=== PATIENT | female | born 1950 | race Caucasian/White ===

== ENCOUNTER 2016-08-04 23:36 | Observation (INO) ==
--- NOTE | 2016-08-05 00:36 | Emergency Department Note ---
Uriah Pinto Brittany, am scribing for, and in the presence of, Nathaniel Alexander MD 00:25. Catherine Pinto Charles R, MD, personally performed the services described in this documentation, ascribed by Kathia Kruse in my presence, and it is both accurate and complete . Arrival - Arrival Chief Complaint: Extremity Problem Stated Complaint: right shoulder ED Nursing Triage Note: C/C right shoulder pain, swelling. Got injection on Friday by Dr Edwin Leigh. Hurts to move it. Mode of Arrival: Ambulatory Limitations: No Limitations Source: Patient, Family, RN Notes Reviewed Time Seen by Provider: 08/04/16 23:57 - History of Present Illness HPI Narrative: Patient is a 66 y/o white female presenting to the ED accompanied by her daughter with c/o right shoulder pain and swelling with an onset of yesterday morning. Patient was seen at [facility] and transferred here for further evaluation. Daughter reports that she received an injection to her right shoulder on Friday per Dr. Edwin Jr. Daughter states that patient was doing fine after the injection until yesterday, when pain onset. She notes that patient's pain is increased with movement. Daughter reports that due to extent of pain, patient at times will become anxious and begin to get short of breath. Patient states, "pain hasn't let up," but denies having any chest pain with this. Daughter notes that patient did have a fever at [facility]. No other complaint/pain in the ED at this time. Allergies/Adverse Reactions: Allergies Allergy/AdvReac Type Severity Reaction Status Date / Time ketorolac [From Toradol] Allergy Agitated Verified 08/04/16 23:48 Review of System - Review of System 12 point system: reviewed and no additional remarkable complaints except as stated - Review of System Constitutional: Present: fever Respiratory: Present: respiratory distress Cardiovascular: Absent: chest pain Musculoskeletal: Present: arm pain (right shoulder) Psychiatric: Present: anxiety Medical,Surgical,& Family Hx - Medical History Cardio: History of: Hypertension Psychological: History of: Depression Respiratory: History of: Asthma Musculoskeletal: History of: Back/Neck Problems, Musculoskeletal Problems ( bilat carpal tunnel) - Surgical History Abdominal Surgeries: Surgical HX of: Cholecystectomy - Social History Smoking Status: Never smoker Frequency of Alcohol Use: None Type of Drug Use: None Exam Vital Signs: Vital Signs Temperature 99.2 F 08/04/16 23:42 Pulse Rate 86 08/04/16 23:50 Respiratory Rate 20 08/04/16 23:50 Blood Pressure 125/91 08/04/16 23:50 O2 Sat by Pulse Oximetry 100 08/04/16 23:50 - General General appearance: alert, in distress (due to pain) - Head Head exam: Present: atraumatic, normocephalic - Eye Eye exam: Present: PERRL, EOMI - ENT ENT exam: Present: mucous membranes moist, TM's normal bilaterally - Neck Neck exam: Present: full ROM, trachea midline. Absent: tenderness - Chest Chest inspection: Present: symmetric chest wall rise. Absent: tenderness - Respiratory Respiratory exam: Present: normal lung sounds bilaterally. Absent: rales, rhonchi, wheezes - Cardiovascular Cardiovascular exam: Present: normal rhythm, tachycardia, normal heart sounds. Absent: regular rate - Abdominal Exam Abdominal exam: Present: soft, normal bowel sounds. Absent: distention, tenderness - Expanded Upper Right Upper Extremity Shoulder exam: Present: tenderness, swelling, other (warm to touch). Absent: full ROM (limited due to pain, patient would not let me move it) Vascular exam: Normal: radial pulse (intact) - Back Exam Back exam: Present: full ROM - Neurological Exam Neurological exam: Present: alert, oriented X3 - Psychiatric Psychiatric exam: Present: normal affect, normal mood - Skin Skin exam: Present: warm, dry, intact, normal color Course Course Narrative: Physical examination the right shoulder shows patient is able to have limited range of motion due to pain. There is crepitation and clicking on movement. No redness minimal swelling x-ray shows severe degenerative changes. Neurovascular intact patient is afebrile in our emergency room with a 99.2 temperature - Consultations Consultation #1: Spoke to Dr. Pineda about the case. To actively given observation admission or go home and he'll see her in the office. After speaking to the patient she states her pain is too bad for her to go home some (the hospital for observation no antibiotics will treat her pain and have him see her in the morning she'll be nothing by mouth Time: 00:36 Disposition Clinical Impression: Right shoulder pain, Right rotator cuff tendinitis Case discussed with: patient, patient's family Disposition: Still a Patient Condition: Stable Time of Disposition: 00:40
[2016-08-05] MEDS ORDERED: MAGNESIUM SULF RIDER 2 GM in PREMIX 1 EACH IV STA (00:40)
[2016-08-05] MEDS ORDERED: ONDANSETRON 4 MG/2 ML VIAL IV STA (00:40)
[2016-08-05] MEDS ORDERED: MEPERIDINE 25 MG/1 ML VIAL IV STA (00:40)
[2016-08-05] MEDS ORDERED: ONDANSETRON 4 MG/2 ML VIAL ONE (01:01)
[2016-08-05] MEDS ORDERED: MEPERIDINE 25 MG/1 ML VIAL ONE (01:01)
[2016-08-05] MEDS ORDERED: MAGNESIUM SULF RIDER 50 ML IV ONE (01:01)
[2016-08-05] MEDS ORDERED: HYDROmorphone 2 MG/1 ML VIAL IV PRN (01:47)
[2016-08-05] MEDS ORDERED: ZALEPLON 5 MG CAPSULE PO PRN (01:47)
[2016-08-05] MEDS ORDERED: MAGNESIUM HYDROXIDE SUSP 30 ML UDCUP PO PRN (01:47)
[2016-08-05 02:11] LABS: Basophils % 0.1 % (0.0-0.8); Eosinophils % 0.1 % (0.00-10.9); Hematocrit 35.3 VOL% (35.7-47.0); Hemoglobin 11.9 GM/DL (12.0-16.0); Immature Granulocytes % 0.4 %; Immature Granulocytes Absolute 0.07 #; Lymphocytes # 1.9 10*3/uL (1.4-4.0); Lymphocytes % 11.9 % (21.3-54.2); Mean Corpuscular HGB Conc 33.7 GM/DL (32-36); Mean Corpuscular Hemoglobin 30 PG (27-34); Mean Corpuscular Volume 88.3 FL (87-102); Mean Platelet Volume 9.2 FL (9.6-12.0); Monocytes # 1.6 10*3/uL (0.11-0.8); Monocytes % 9.9 % (1.7-12.7); Neutrophils # 12.4 10*3/uL (1.4-7.4); Neutrophils % 77.6 % (38.7-73.9); Platelet Count 307 10*3/uL (130-400); White Blood Count 15.9 10*3/uL (4.5-13.71)
[2016-08-05] MEDS: SODIUM CHLORIDE 0.9% 1,000 ML IV SCH ×2 (02:25→13:21)
[2016-08-05 02:44] LABS: Albumin 3.2 G/DL (3.4-5.0); Bilirubin,Total 1.3 MG/DL (0.2-1.0); Calcium 8.6 MG/DL (8.5-10.1); Osmolality,Calculated 276.7 MOS/KG (273-304); Potassium 3.6 MMOL/L (3.5-5.1); Total Protein 6.4 G/DL (6.4-8.3)
[2016-08-05] MEDS ORDERED: ONDANSETRON 4 MG/2 ML VIAL IV PRN (07:23)
--- NOTE | 2016-08-05 07:26 | Orthopedic History & Physical ---
History of Present Illness Chief complaint: rt shoulder pain History of present illness: Ms. Gallo is a 66 year old female see dictated reports Allergies Allergy/AdvReac Type Severity Reaction Status Date / Time ketorolac [From Toradol] Allergy Agitated Verified 08/04/16 23:48 Medical,Surgical,& Family Hx - Medical History Cardio: History of: Hypertension Psychological: History of: Depression HEENT: History of: Ear Problem (hard of hearing) Respiratory: History of: Asthma Musculoskeletal: History of: Back/Neck Problems, Musculoskeletal Problems ( bilat carpal tunnel, arthritis, right leg paralysis) - Surgical History Abdominal Surgeries: Surgical HX of: Abdominal Surgery (esophagus dilated 2015) , Cholecystectomy - Family History Family History: Reports;: Family Heart Disease (mother had heart catherization) , Family Hypertension (mother) - Social History Smoking Status: Never smoker Frequency of Alcohol Use: None Type of Drug Use: None Exam - Constitutional Vitals: Period Temp Pulse Resp BP Sys/Grijalva Pulse Ox Last 24 Hr 97.5 F-98.2 F 72-95 18-18 92-154/69-82 96-100 Results - Labs CBC & BMP: 08/05/16 02:03 08/05/16 02:03
--- NOTE | 2016-08-05 07:42 | EKG Report ---
Stationary ECG Study [facility] Test Date: 08/05/2016 7:26:08 AM Pat Name: MYRON PULIDO Department: Room: 322 Gender: F Ekg/Ecg Technician: EFREN : 1950 Requested by: Nathaniel Leon Order Number: [id number] Mellissa MD: NEDRA NASCIMENTO Intervals Dexter Rate: 61 P: 63 IN: 162 QRS: 27 QRSD: 104 T: 20 QT: 439 QTc: 441 Interpretive Statements SINUS RHYTHM Electronically Signed On 08-05-16 09:23:23 [employer]2B OUTSIDE SALES REPRESENTATIVE by NEDRA NASCIMENTO [email or web address]
--- NOTE | 2016-08-05 08:02 | XRay Report ---
Referring Physician: Nathaniel Alexander Exam: XR shoulder 2V RT Date: August 05, 2016 at 5:32 AM Reason: Right shoulder pain Comparison: Right shoulder x-rays August 04, 2016 Findings: There is moderate to severe degenerative change at the right acromioclavicular joint with marginal spurring. There is also marginal spurring at the right humeral head and mild marginal spurring at the lateral aspect of the acromium. No acute fracture, dislocation or osseous destructive process is identified. Impression: Degenerative change at the right shoulder as above. No acute osseous process is identified. PROCEDURE INTERPRETED AT [facility] DEPARTMENT OF RADIOLOGY Final Report Signed by: Dr. Jeannie Ballesteros
[2016-08-05 11:09] LABS: Apearance,Urine Slightly Hazy (Clear); Bacteria,Urine Occasional /HPF (Few); Bilirubin,Urine Negative (Negative); Blood, Urine Negative (Negative); Glucose,Urine (UA) Negative (Negative); Ketones,Urine 5 mg/dL (Negative); Mucus,Urine Occasional /LPF (Occasional); Nitrite,Urine Negative (Negative); Protein,Urine Negative; RBC,Urine 2 /HPF (0-4); Squamous Epithelial Cell,Urine Occasional /HPF (0-10); Urine Color Dark yellow (Yellow); Urine Specific Gravity 1.019 (1.001-1.035); WBC,Urine 16 /HPF (0-6)
--- NOTE | 2016-08-05 12:05 | History and Physical Report ---
DATE OF ADMISSION: 08/05/2016 A 66-year-old white female admitted for a recent onset of severe right shoulder pain. She has a his tory of rotator cuff arthropathy. She has been a patient of mine for the past couple of years. She is a nonoperative candidate due to multiple medical problems. She was injected approximately 5 day s ago in her right shoulder with the combination of Marcaine/Celestone and expectations were discuss ed. Her previous injection prior to that was about a year and a half ago. She had initial improvem ent with a recurrence of pain, which started Friday morning. She was evaluated at [facility] due to some laboratory values, elevated white count. She was told that her shoulder was infected and that she needed to follow up at [facility]. She had been evaluated by Dr. Alexander and is being a dmitted for evaluation. PAST MEDICAL: Pulmonary, hypertension, depression, asthma, carpal tunnel, back and neck problems. PAST SURGICAL: Cholecystectomy. MEDICINES: Toradol. PHYSICAL EXAMINATION A well-developed, nourished female. She is in mild discomfort about her right shoulder. This morni ng she had received some pain medication. She tolerates gentle passive range of motion including in ternal/external rotation and abduction to about 90 degrees without any severe discomfort. I can isidro reciate no erythema or warmth about the right shoulder. There is no pain or swelling distally about the arm. RADIOGRAPHS: Right shoulder confirmed the degenerative changes, which are chronic in appearance. T his includes an osteophyte off the humeral head as well as cuff arthropathy changes. IMPRESSION: 1. ROTATOR CUFF ARTHROPATHY, RIGHT SHOULDER. 2. PROBABLE URINARY TRACT INFECTION. PLAN: I have discussed with her my impression. This is not a septic shoulder. We will go ahead an d give her something to eat. I have recommended we obtain a urine before making the official diagno sis of the UTI. We will treat her right shoulder pain symptomatic. She appears to understand and a grees with the plan.
--- NOTE | 2016-08-05 12:08 | Orthopedic Progress Note ---
Orthopedics - Subjective Interval history: Urinalysis looks like a UTI cultures in progress. I discussed this matter with her I understand she has shoulder pain but clinically she tolerates range of motion is not septic. I have recommended that we add an oral anti-inflammatory agent to her home regimen she states she can tolerate Aleve and I've written a prescription for naproxen 375 twice a day also empirically which go ahead start treating the UTI which I believe is the culprit related to her mildly elevated white count Cipro 5 days. Plan on follow-up with me in a week she is encouraged was no she's not progressing as we have outlined. Exam - Constitutional Vitals: Period Temp Pulse Resp BP Sys/Grijalva Pulse Ox Last 24 Hr 97.5 F-98.2 F 62-95 18-18 92-154/69-91 96-100 Results - Labs CBC & BMP: 08/05/16 02:03 08/05/16 02:03
--- NOTE | 2016-08-05 12:11 | Discharge Summary ---
Hospital Course - Hospital Course Hospital Course: Admitted for suspected septic shoulder following an injection clinically that is not the case she has active and passive motion with known history of severe rotator cuff arthropathy. Mild elevation in white count believed to be related to UTI morning. The treat the UTI cultures are pending add an oral anti- inflammatory agent to her pain regimen and allow her to discharged today with a week follow-up Diagnosis - Discharge Diagnosis (1) Rotator cuff tear arthropathy of right shoulder Status: Acute (2) Urinary tract infection Status: Acute Discharge Plan - Discharge Data Disposition: Disch To Home/Self Care Condition at Discharge: Stable Discharge Diet: advance to your usual diet Activity: resume usual activities as tolerated (arm sling as needed for comfort) Hygiene: may shower Weight Bearing at Discharge: weight bear as tolerated - Discharge Medications No Action Penicillin Vk Tab 500 mg PO Q6HR Tizanidine HCl [Zanaflex] 2 mg PO Q8HR PRN PRN Reason: Muscle Spasm Hydrocodone/Acetaminophen [Hydrocodon-Acetaminoph 7.5-325] 1 each PO Q12H PRN PRN Reason: Pain Tramadol HCl [Tramadol Tab] 50 mg PO DAILY PRN PRN Reason: Pain - Follow Up or Referral - Forms/Instructions Additional Discharge Instructions: Discharge to home continue home medications Naprosyn 375 mg twice a day with meals Cipro 5 days for UTI arm sling for comfort as needed ice pack as needed follow-up with me in 1 week if still symptomatic. Exam - Constitutional Vitals: Period Temp Pulse Resp BP Sys/Grijalva Pulse Ox Last 24 Hr 97.5 F-98.2 F 62-95 18-18 92-154/69-91 96-100 Discharge Results Procedures and tests throughout hospitalization: Pending Orders 08/05/16 Urine Culture Routine 08/05/16 02:03 Blood Culture Stat Labs on day of discharge: Labs from last 24 hours 08/05/16 08/05/16 08/05/16 10:55 02:03 02:03 WBC RBC Hgb Hct MCV MCH MCHC RDW Plt Count MPV Neut % (Auto) Lymph % (Auto) Bladen % (Auto) Eos % (Auto) Baso % (Auto) Neut # (Auto) Lymph # (Auto) Bladen # (Auto) Eos # (Auto) Baso # (Auto) Immature Gran % Nucleated RBC % Immature Gran # Nucleated RBCs # Sodium 138 Potassium 3.6 Chloride 107 Carbon Dioxide 25 Anion Gap 9.6 BUN 13 Creatinine 0.60 GFR Calculation 107 BUN/Creatinine Ratio 21.00 H Glucose 142 H Calculated Osmolality 276.7 Calcium 8.6 Total Bilirubin 1.30 H AST 321 H ALT 96 H Alkaline Phosphatase 264 H Total Protein 6.4 Albumin 3.2 L Globulin 3.2 Albumin/Globulin Ratio 1.0 L Urine Color Dark yellow Urine Appearance Slightly hazy Urine pH 6.0 Ur Specific [place] 1.019 Urine Protein Negative Urine Glucose (UA) Negative Urine Ketones 5 Urine Blood Negative Urine Nitrate Negative Urine Bilirubin Negative Urine Urobilinogen 4.0 H Urine Leukocytes Moderate H Urine RBC 2 Urine WBC 16 Ur Squamous Epith Cells Occasional Urine Bacteria Occasional Urine Mucus Occasional Ur Culture Indicated? Results to follow Blood Type A POSITIVE Antibody Screen Negative 08/05/16 02:03 WBC 15.9 H RBC 4.00 Hgb 11.9 L Hct 35.3 L MCV 88.3 MCH 30 MCHC 33.7 RDW 12.0 Plt Count 307 MPV 9.2 L Neut % (Auto) 77.6 H Lymph % (Auto) 11.9 L Bladen % (Auto) 9.9 Eos % (Auto) 0.1 Baso % (Auto) 0.1 Neut # (Auto) 12.4 H Lymph # (Auto) 1.9 Bladen # (Auto) 1.6 H Eos # (Auto) 0.0 Baso # (Auto) 0.0 Immature Gran % 0.4 Nucleated RBC % 0.0 Immature Gran # 0.07 Nucleated RBCs # 0.00 Sodium Potassium Chloride Carbon Dioxide Anion Gap BUN Creatinine GFR Calculation BUN/Creatinine Ratio Glucose Calculated Osmolality Calcium Total Bilirubin AST ALT Alkaline Phosphatase Total Protein Albumin Globulin Albumin/Globulin Ratio Urine Color Urine Appearance Urine pH Ur Specific [place] Urine Protein Urine Glucose (UA) Urine Ketones Urine Blood Urine Nitrate Urine Bilirubin Urine Urobilinogen Urine Leukocytes Urine RBC Urine WBC Ur Squamous Epith Cells Urine Bacteria Urine Mucus Ur Culture Indicated? Blood Type Antibody Screen DS: Provider Date of admission: 08/05/16 00:41 Primary care physician: Efe Gallardo Attending physician on admission: Shawn Pineda Jr., MD Consults: 08/05/16 01:47 Consult to Anesthesiology [CONS] Routine Consulting Provider: Reason for Anesthesiology: Pre-op Clearance 08/05/16 07:24 Consult to Physical Therapy [CONS] Routine Reason for Physical Therapy: Evaluate and Treat Discharging clinician: Shawn Pineda Jr., MD
[2016-08-05 19:41] VITALS: BP 142/87
== END 2016-08-05 17:40 | disposition home or self-care (01) ==
LOC: N.ED 23:36 → N.EDINP 23:36 → N.3E 08-05 01:07
PROVIDERS: ADMIT Orthopaedic Surgery; ATTEND Orthopaedic Surgery